=== PATIENT | female | born 1940 | race Caucasian/White ===

== ENCOUNTER 2016-11-07 05:25 | Day surgery (SDC) | payer MEDICARE ==
[~2016-11-07] VITALS: Ht 160 cm; Wt 75.3 kg
[~2016-11-07 05:25] MED LIST: ACETAMINOPHEN500 M1 PO; ALIGN4 MG PO; ASPIRIN EC81 M1 PO; EVISTA60 MG PO; GLUCOPHAGE1000 MG PO; HYDROCHLOROTH12.5 M1 PO; IPRATROPIUM BR21 MCG NASAL; LIPITOR20 MG PO; METAMUCIL FIB1 WAFER PO; NIASPAN500 MG PO; PAZEO2.5 ML EACH EYE; PRINIVIL20 MG PO; SKELAXIN800 MG PO; ULTRAM50 MG PO
[2016-11-07 09:22] VITALS: BP 142/64; Ht 160 cm; Wt 75.3 kg
[2016-11-07] MEDS ORDERED: HYDROCODONE-APA1 TAB PO (11:27)
== END 2016-11-07 13:10 | disposition home or self-care (01) ==
LOC: D.OPS 05:25 → D.PAN 14:55 → D.OPS 17:10 → D.PAN 18:45 → D.OPS 18:45
DX: M65.311 Trigger thumb, right thumb (principal); I10 Essential (primary) hypertension; K21.9 Gastro-esophageal reflux disease without esophagitis; R94.31 Abnormal electrocardiogram [ECG] [EKG]; Z01.812 Encounter for preprocedural laboratory examination